=== PATIENT | female | born 1955 | race Caucasian/White ===

== ENCOUNTER 2023-11-28 10:48 | Emergency (ER) | payer MEDICARE, SELFPAY ==
--- NOTE | ~2023-11-28 | XR_ITS ---
Clinical Indication: Cough, hypoxia PA and lateral views of the chest: Comparison: 11/06/2017 Findings: There is hazy bibasilar and left midlung airspace disease. Possible minimal right pleural e ffusion.. Cardiomediastinal silhouette is within normal limits. Bones and soft tissues are unremarka ble. Impression: Hazy bibasilar and left midlung airspace disease. Correlate for pulmonary edema, pneumonia, or possib ly chronic moderate changes. Consider chest CT to further evaluate. Possible minimal right pleural effusion. Reviewed, dictated and finalized at location . Impression: Hazy bibasilar and left midlung airspace disease. Correlate for pulmonary edema , pneumonia, or possibly chronic moderate changes. Consider chest CT to further evaluate. Possible minimal right pleural effusion.
[2023-11-28 11:03] VITALS: BP 138/75; PULSE 125; RESP 16; TEMP 36.5; O2SAT 97
--- NOTE | 2023-11-28 11:10 | ED.URI ---
HPI - URI/Sore Throat General Chief Complaint: Upper Respiratory Infection Stated Complaint: Runny Nose/Back Pain/Headache Time Seen by Provider: 11/28/23 11:10 Source: patient Mode of arrival: ambulatory Limitations: no limitations History of Present Illness HPI Narrative: 68-year-old female with history of interstitial lung disease and atrial fibrillation presented for complaint of cough, mid left back pain, fatigue, and hot cold flashes for about a week. Symptoms worsened last night. She has not taken anything for symptoms. She also reports she did not take her normal heart medication this morning. Denies increase in shortness of breath from baseline, chest pain, nausea, vomiting, diarrhea or lethargy. Related Data Home Medications Medication Instructions Recorded Confirmed diltiazem HCl 240 mg mg PO 11/28/23 capsule,extended release 24 hr, controlled lisinopril 2.5 mg tablet mg 11/28/23 metformin 500 mg tablet mg 11/28/23 metoprolol tartrate 50 mg tablet mg 11/28/23 warfarin 5 mg tablet mg 11/28/23 Allergies Allergy/AdvReac Type Severity Reaction Status Date / Time tramadol Allergy Mild Verified 08/24/18 10:29 Molds and Smuts Allergy Unknown Uncoded 08/24/18 10:29 Review of Systems Review of Systems: CONSTITUTIONAL: reports body aches, fever, chills, or sweats. EYES: Denies visual changes, redness, or discharge. ENT: reports rhinorrhea, denies sore throat, or otalgia. CARDIOVASCULAR: Denies chest pain, palpitations, or edema. RESPIRATORY: reports cough denies increased dyspnea or wheezing. GASTROINTESTINAL: Denies abdominal pain, nausea, vomiting, or diarrhea. NEUROLOGIC: Denies headache, numbness, tingling, or weakness. All systems reviewed & are unremarkable except as noted in HPI and below PMFSH Past Medical History Medical History (Updated 11/28/23 @ 11:53 by Cindy Christopher, [employer]) Atrial fibrillation Interstitial lung disease Comments At time of signature, I have reviewed and agree with nursing past medical, surgical, social and family history unless otherwise noted. Please see nursing chart for further information. There is no relevant family history pertinent to the presenting complaint Exam Narrative: GENERAL: Mildly ill-appearing, no acute distress. EYES: EOMI. No redness or drainage. Conjunctivae normal. ENT: Mucous membranes pink and moist. No rhinorrhea. NECK: Normal AROM. CHEST: No respiratory distress. lungs diminished throughout to auscultation. HEART: tachycardic, irregular rhythm No murmur appreciated. Normal peripheral pulses. SKIN: Warm, dry, no rash. Capillary refill normal. Normal skin turgor. NEURO: No focal deficits. Alert and oriented x3. Gait steady. PSYCH: flat affect. Course Course Emergency Course: Patient is aware of diagnosis, understands and agrees to treatment plan. Anticipatory guidance given. Patient agrees to follow-up as directed and is aware of reasons to seek care at the emergency department. Portions of this record may have been created with voice recognition software Level of Care: Express Care Visit Vital Signs Vital signs: Vital Signs Temperature 97.7 F 11/28/23 11:03 Pulse Rate 125 H 11/28/23 11:03 Respiratory Rate 16 11/28/23 11:03 Blood Pressure 138/75 11/28/23 11:03 Pulse Oximetry 97 11/28/23 11:03 Oxygen Delivery Room Air 11/28/23 11:03 Temperature 97.7 F 11/28/23 11:03 Pulse Rate 125 H 11/28/23 11:03 Respiratory Rate 16 11/28/23 11:03 Blood Pressure 138/75 11/28/23 11:03 Pulse Oximetry 97 11/28/23 11:03 Oxygen Delivery Room Air 11/28/23 11:03 MDM - URI/Sore Throat MDM Narrative Medical decision making narrative: O2 sat 95% RA, HR 125-160 with known afib States she has not taken her medication yet today. She is advised ER transfer for further evaluation and management of RVR and is aware of the risks associated with uncontrolled atrial fibrillation. [place]
== END 2023-11-28 12:00 | disposition left against medical advice (07) ==
PROVIDERS: Emergency Provider Nurse Practitioner Family; PCP Nurse Practitioner Family
DX: J22 Unspecified acute lower respiratory infection (principal); R00.0 Tachycardia, unspecified; I48.91 Unspecified atrial fibrillation; J84.9 Interstitial pulmonary disease, unspecified
CPT/HCPCS: 71046; 99213; G0463

== ENCOUNTER 2024-04-26 10:12 | Emergency (ER) | payer MEDICARE, SELFPAY ==
[2024-04-26 10:18] VITALS: BP 119/74; PULSE 89; RESP 20; TEMP 36.5; O2SAT 99
--- NOTE | 2024-04-26 10:46 | ED.BACK ---
HPI - Back Pain/Injury General Chief Complaint: Back Pain/Injury Stated Complaint: Right hip down leg pain Source: patient Mode of arrival: ambulatory Limitations: no limitations History of Present Illness HPI Narrative: 68-year-old female with history of diabetes presented for complaint of right hip pain for about 4 days. Pain is to the left lower back and radiates into the hip and occasionally into the thigh or back of the leg. Denies associated numbness, tingling, weakness. Use an assistive device with walking. Taking Tylenol. She denies injury. Endorses a history of back surgeries and says this does not feel the same. Denies change in gait, saddle paresthesia or loss of bowel or bladder. Related Data Home Medications ?Medication ?Instructions ?Recorded ?Confirmed ?Last Taken ?Type diltiazem HCl 240 mg mg PO 11/28/23 Unknown History capsule,extended release 24 hr, controlled lisinopril 2.5 mg tablet mg 11/28/23 Unknown History metformin 500 mg tablet mg 11/28/23 Unknown History metoprolol tartrate 50 mg tablet mg 11/28/23 Unknown History warfarin 5 mg tablet mg 11/28/23 Unknown History Allergies Allergy/AdvReac Type Severity Reaction Status Date / Time tramadol Allergy Mild Verified 08/24/18 10:29 Molds and Smuts Allergy Unknown Uncoded 08/24/18 10:29 Review of Systems Review of Systems: CONSTITUTIONAL: Denies body aches, fever, chills CARDIOVASCULAR: Denies chest pain, palpitations, or edema. RESPIRATORY: Denies cough or dyspnea. GASTROINTESTINAL: Denies abdominal pain, nausea, vomiting, or diarrhea. SKIN: Denies rash, itching, or wounds. MUSCULOSKELETAL: Reports right hip pain NEUROLOGIC: Denies numbness, tingling, or weakness. All systems reviewed & are unremarkable except as noted in HPI and below PMFSH Past Medical History Medical History Interstitial lung disease Atrial fibrillation Comments At time of signature, I have reviewed and agree with nursing past medical, surgical, social and family history unless otherwise noted. Please see nursing chart for further information. There is no relevant family history pertinent to the presenting complaint Exam Narrative: GENERAL: Well-appearing CHEST: Speaks in full sentences. No respiratory distress. HEART: Regular rate and rhythm; murmur is noted. Normal and equal peripheral pulses. EXTREMITIES: RLE has normal strength and sensation, normal range of motion at right hip but endorses pain with movement. tender with palpation to the posterior hip, SI joint, and anterior hip. No edema or ecchymosis, No open wounds, skin tenting, alignment normal, pulse palpable and equal bilaterally, skin warm, dry, pink. Capillary refill less than 3 seconds. SKIN: Warm, dry, no rash. NEURO: Alert and oriented x3. PSYCH: Normal mood and affect Extrem: Upper/lower leg/hip images:  1. area of pain 2. area of pain Course Course Emergency Course: Patient is aware of diagnosis, understands and agrees to treatment plan. Anticipatory guidance given. Patient agrees to follow-up as directed and is aware of reasons to seek care at the emergency department. Portions of this record may have been created with voice recognition software Level of Care: Express Care Visit Vital Signs Vital signs: Vital Signs Temperature 97.7 F 04/26/24 10:18 Pulse Rate 89 04/26/24 10:18 Respiratory Rate 20 04/26/24 10:18 Blood Pressure 119/74 04/26/24 10:18 Pulse Oximetry 99 04/26/24 10:18 Oxygen Delivery Room Air 04/26/24 10:18 Temperature 97.7 F 04/26/24 10:18 Pulse Rate 89 04/26/24 10:18 Respiratory Rate 20 04/26/24 10:18 Blood Pressure 119/74 04/26/24 10:18 Pulse Oximetry 99 04/26/24 10:18 Oxygen Delivery Room Air 04/26/24 10:18 Reviewed MDM - Back Pain/Injury MDM Narrative Medical decision making narrative: Discussed physical exam findings and xray. Declined steroid stating her body rejects prednisone. Advised supportive measures and signs/symptoms to go to the ER. Pt is appropriate for outpt treatment and f/u. Differential Diagnosis Differential diagnosis: Likely lumbar radiculopathy, sciatica, strain of lumbar region, discitis and other (Hip dislocation, impingement, femur fracture, pelvic fracture, hip bursitis, psoas abscess, piriformis syndrome, septic arthritis, osteoarthritis, avascular necrosis of hip, lumbar radiculopathy) Imaging Data Radiologist's impression: Patient: Babs Luong Asuncion : 1955 MR#: [id number] Age: 68 Acct:[id number] Loc: [facility] ADM Date: 04/26/24Attending Dr: Ordering Physician: Cindy Christopher APRN Date of Service: 04/26/24 Procedure(s): XR hip RT min 2V Accession Number(s): [id number] cc: Cindy Christopher APRN; Kassi, Cherry CHILLER HAND~ XR hip RT min 2V Ordering provider: Cindy Christopher APRN History: . pain no injury . Comparison: None. FINDINGS: BONES: No acute fracture or dislocation. HIP JOINT SPACES: Normal. PUBIC SYMPHYSIS: Normal. SOFT TISSUES: Normal. IMPRESSION: No acute osseous abnormality pelvis and right hip. Discharge Plan Discharge Clinical Impression: Acute pain of right hip Patient Disposition: Home, Self-Care Condition: Stable Instructions: Antibiotic Form, Hip Pain (ED) Additional Instructions: Rest. Avoid running or excessive walking or anything that worsens the symptoms Tylenol Arthritis every 8 hours as needed Alternate ice/heat to the site. Lidocaine or salon pas pain patch or use pain cream like icy/hot or biofreeze. Follow up with your primary care provider as needed in 1 week Go to the ER for worsening symptoms or concerns Patient Language: [place] Prescriptions: No Action metformin 500 mg tablet diltiazem HCl 240 mg capsule,ext.rel 24h degradable PO warfarin 5 mg tablet metoprolol tartrate 50 mg tablet lisinopril 2.5 mg tablet prednisone 20 mg tablet 40 mg PO DAILY 5 Days Qty: 10 0RF amoxicillin-pot clavulanate 875-125 mg tablet 1 tablet PO Q12H 7 Days Qty: 14 0RF Follow-up/Referrals: Kassi,BRENTON Carey [Primary Care Provider] - Time of Disposition: 11:23
== END 2024-04-26 11:27 | disposition home or self-care (01) ==
PROVIDERS: Emergency Provider Nurse Practitioner Family; PCP Nurse Practitioner Family
DX: M25.551 Pain in right hip (principal); I48.91 Unspecified atrial fibrillation; J84.9 Interstitial pulmonary disease, unspecified
CPT/HCPCS: 73502; 99213; G0463